=== PATIENT | female | born 1975 | race Caucasian/White ===

== ENCOUNTER 2018-06-10 22:18 | Emergency (ER) | payer MEDICAID ==
[2018-06-10 22:46] VITALS: BP 152/86; PULSE 78; RESP 16; TEMP 98; O2SAT 100
--- NOTE | 2018-06-10 23:57 | ED PDOC ---
Lower Extremity Pain/Injury Time Seen by Provider: 06/10/18 22:37 Chief Complaint (Nursing): Lower Extremity Problem/Injury Chief Complaint (Provider): Foot pain History Per: Patient History/Exam Limitations: no limitations Additional Complaint(s): 42 yo female presents after slip and fall at work. PT states she continues to work but can no longer tolerate standing on her foot. No similar in the past. No medications [employer]. Past Medical History Reviewed: Historical Data, Nursing Documentation, Vital Signs Vital Signs: Last Vital Signs Temp 98.0 F 06/10/18 22:44 Pulse 78 06/10/18 22:44 Resp 16 06/10/18 22:44 BP 152/86 H 06/10/18 22:44 Pulse Ox 100 06/10/18 22:44 - Medical History PMH: HTN - Surgical History Surgical History: No Surg Hx - Family History Family History: States: Unknown Family Hx - Living Arrangements Living Arrangements: With Family - Social History Current smoker - smoking cessation education provided: No - Home Medications Home Medications: Ambulatory Orders Medication Instructions Recorded Azithromycin [Zithromax] 250 mg PO DAILY #6 tablet 02/01/16 - Allergies Allergies/Adverse Reactions: Allergies Allergy/AdvReac Type Severity Reaction Status Date / Time No Known Allergies Allergy Verified 06/10/18 22:44 Review of Systems ROS Statement: Except As Marked, All Systems Reviewed And Found Negative Constitutional: Negative for: Fever, Chills Respiratory: Negative for: Cough, Shortness of Breath Musculoskeletal: Positive for: Foot Pain Skin: Negative for: Bruising Physical Exam - Reviewed Nursing Documentation Reviewed: Yes Vital Signs Reviewed: Yes - Physical Exam Appears: Positive for: Well, Non-toxic, No Acute Distress Head Exam: Positive for: ATRAUMATIC, NORMAL INSPECTION, NORMOCEPHALIC Skin: Positive for: Normal Color (No erythema, no ecchymosis ), Warm Eye Exam: Positive for: Normal appearance ENT: Positive for: Normal ENT Inspection Neck: Positive for: Normal Respiratory: Negative for: Accessory Muscle Use, Respiratory Distress Pulses-Dorsalis Pedis (L): 2+ Pulses-Post. Tibialis (L): 2+ Pulses-Post. Tibialis (R): 2+ Back: Positive for: Normal Inspection Extremity: Positive for: Normal ROM, Tenderness (Lateral foot and ankle). Negative for: Deformity, Swelling Neurologic/Psych: Positive for: Alert, Oriented - ECG O2 Sat by Pulse Oximetry: 100 Medical Decision Making Medical Decision Making: No acute fracture or dislocation. Davonte wrap and crutches given. Disposition - Clinical Impression Clinical Impression: Foot sprain - Patient ED Disposition Is Patient to be Admitted: No Counseled Patient/Family Regarding: Diagnosis, Need For Followup - Disposition Referrals: Angelito Silva MD [Staff Provider] - [facility] [Outside] Disposition: Routine/Home Disposition Time: 00:05 Condition: STABLE Instructions: Foot Sprain (DC) Forms: [facility] (Sinhala), [facility] ED School/Work Excuse
--- NOTE | 2018-06-11 09:50 | RAD ---
Date of service: 06/10/2018 PROCEDURE: Left Ankle Radiographs. HISTORY: ankle pain, twisted COMPARISON: None FINDINGS: BONES: No acute fracture or destructive bony lesion identified. JOINTS: Normal. No osteoarthritis. Ankle mortise maintained. Talar dome intact SOFT TISSUES: Normal. OTHER FINDINGS: None. IMPRESSION: Normal left ankle radiographs. Navicular bone fracture not apparent in the multiple views the left ankle. Please see separate left foot radiograph series also performed 06/10/2018 for detail regarding left navicular bone.
--- NOTE | 2018-06-11 09:50 | RAD ---
Date of service: 06/10/2018 PROCEDURE: Left Foot Radiographs. HISTORY: doral pain, twisted foot COMPARISON: None. FINDINGS: BONES: Nondisplaced navicular fracture suggested medially. This is best seen in the AP view of the left foot. No additional fracture or destructive bony lesion appreciable. JOINTS: Normal. SOFT TISSUES: Normal. OTHER FINDINGS: None. IMPRESSION: Nondisplaced navicular fracture medial segment left navicular bone. No additional fracture. No subluxation or dislocation. PA review added.
== END 2018-06-11 00:08 | disposition home or self-care (01) ==
LOC: H.ER 22:18
DX: S92.252A Displaced fracture of navicular [scaphoid] of left foot, initial encounter for closed fracture (principal); W19.XXXA Unspecified fall, initial encounter; Y92.89 Other specified places as the place of occurrence of the external cause; I10 Essential (primary) hypertension